=== PATIENT | male | born 1985 | race Caucasian/White ===

== ENCOUNTER 2019-02-21 11:37 | Emergency (ER) | payer BC ==
[~2019-02-21] VITALS: Ht 175.3 cm; Wt 77.1 kg
[2019-02-21] MEDS ORDERED: PRED20 PO (14:25)
[2019-02-21] MEDS ORDERED: CYCL10 PO (14:25)
[2019-02-21] MEDS ORDERED: LORCET 5-325 M1 EACH PO (14:26)
[2019-02-21] MEDS ORDERED: Roxicodone5 MG PO (15:00)
== END 2019-02-21 15:15 | disposition home or self-care (01) ==
LOC: ER 11:37
DX: S16.1XXA Strain of muscle, fascia and tendon at neck level, initial encounter (principal); X58.XXXA Exposure to other specified factors, initial encounter; Z79.52 Long term (current) use of systemic steroids; Z79.899 Other long term (current) drug therapy
CPT/HCPCS: 72040; 99283-25